=== PATIENT | female | born 1990 | race Caucasian/White ===

== ENCOUNTER 2019-12-08 06:50 | Inpatient (IN) | payer BC ==
[~2019-12-08 06:50] MED LIST: Bupivacaine 0.25% 10 ML SDV ONE
[2019-12-08] MEDS ORDERED: Sodium Chloride 0.9% 10 ML Syringe FLUSH PRN (07:28)
[2019-12-08] MEDS ORDERED: Oxytocin/Lactated Ringers 10 UNIT/1,000 ML BAG IV SCH ×2 (07:30)
[2019-12-08] MEDS ORDERED: ePHEDrine 50 MG/ML SDV IVPUSH PRN (07:49)
[2019-12-08] MEDS ORDERED: fentaNYL 100 MCG/2 ML SDV EPIDUR PRN (07:49)
[2019-12-08] MEDS ORDERED: diphenhydrAMINE 50 MG/ML SDV IVPUSH PRN (07:49)
[2019-12-08] MEDS ORDERED: Bupivacaine/fentaNYL/NS 100 ML Bag EPIDUR PRN (07:49)
[2019-12-08] MEDS ORDERED: Misoprostol 25 MCG (1/4 of 100 MCG) Tab ONE (08:01)
--- NOTE | 2019-12-08 08:11 | PCM.LDHP ---
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 An having cramping since seen in the clinic yesterday through the night. Cervix remains 1-2 cm 50% effaced soft posterior cephalic presentation -2 station GBS negative patient has had previous history of hydrocephalus in 2012 has a history of surgery with ventriculostomy. No contraindication to pushing R epidural. Patient has had a history of one miscarriage. Blood type A+, antibody screen negative. Hemoglobin/hematocrit 12.0/36.8 platelets 293,000. Rubella immune. Mixed ronnie suggestive of contamination on urine culture. Negative hepatitis B surface antigen negative. GC and chlamydia probe negative 09/16/2019 hemoglobin/hematocrit 11.4/34.1 platelets 228,000. Serology nonreactive. Group B strep negative on 11/16/2019. Plan medically indicated induction because of polyhydramnios, debris and amnionic fluid, uncoiled umbilical cord.. [place] fluid index 22.4 on ultrasound yesterday. Increased from 15.0 on 11/30/2019. Improves with: Reports: None Worsens with: Reports: None Associated Symptoms: Reports: N - Related Data Allergies/Adverse Reactions: Allergies Allergy/AdvReac Type Severity Reaction Status Date / Time No Known Allergies Allergy Verified 12/08/19 08:02 Past Medical History : 2 Para: 10 LMP (Approximate): Neurological History: Reports: Other (See Below) (History of hydrocephalus with ventriculostomy in 2012.) H&P Review of Systems - Review of Systems: Review Of Systems: See Below General: Reports: No Symptoms HEENT: Reports: No Symptoms Pulmonary: Reports: No Symptoms Cardiovascular: Reports: No Symptoms Gastrointestinal: Reports: No Symptoms Genitourinary: Reports: No Symptoms Musculoskeletal: Reports: No Symptoms Skin: Reports: No Symptoms Psychiatric: Reports: No Symptoms Neurological: Reports: No Symptoms Hematologic/Lymphatic: Reports: No Symptoms Immunologic: Reports: No Symptoms L&D Exam - Exam Exam: See Below - OB Specific Fundal Height In cm: 38 Contraction Intensity: Mild to Moderate Movement: Active Heart Tones: Present Heart Tones per Min: 135 Heart Rate (FHR) Variability: Moderate (6-25 bmp) Presentation: Vertex - Ramirez Score Ramirez Score Cervix Position: Posterior Ramirez Score Consistency: Soft Ramirez Score Effacement: 31-50% Ramirez Score Dilation: 1-2 cm Ramirez Score Infant's Station: -2 Ramirez Score Total: 5 - Exam General: Alert, Oriented HEENT: Conjunctiva Clear, Mucosa Moist & [place] Neck: Supple, Trachea Midline Lungs: Clear to Auscultation, Normal Respiratory Effort Cardiovascular: Regular Rate, Regular Rhythm GI/Abdominal Exam: Normal Bowel Sounds, Soft, Non-Tender Genitourinary: Normal external exam Extremities: Normal Inspection, Non-Tender, No Pedal Edema, Normal Capillary Refill Skin: Warm, Dry, Intact Psychiatric: Alert, Normal Affect, Normal Mood - Problem List (1) 38 weeks gestation of SNOMED Code(s): 31984132 ICD Code: Z3A.38 - 38 WEEKS GESTATION OF Status: Acute Current Visit: Yes (2) Polyhydramnios affecting in third trimester SNOMED Code(s): 516857071, 458345898 ICD Code: O40.3XX0 - POLYHYDRAMNIOS, THIRD TRIMESTER, NOT APPLICABLE OR UNSP Status: Acute Current Visit: Yes (3) Abnormal US Status: Acute Current Visit: Yes Problem List Initiated/Reviewed/Updated: No Orders Last 24hrs: Active Orders 24 hr Category Date Time Status Patient Status [ADT] Routine ADT 12/08/19 07:28 Active Activity as Tolerated [RC] PFP Care 12/08/19 07:28 Active Communication Order [RC] ASDIRECTED Care 12/08/19 07:28 Active Communication Order [RC] ASDIRECTED Care 12/08/19 07:30 Active Communication Order [RC] ASDIRECTED Care 12/08/19 07:30 Active Communication Order [RC] ASDIRECTED Care 12/08/19 07:30 Active Communication Order [RC] ASDIRECTED Care 12/08/19 07:49 Active Cooling Warming Measures [RC] ASDIRECTED Care 12/08/19 07:49 Active Heart Tones [RC] ASDIRECTED Care 12/08/19 07:28 Active Monitoring [RC] INTERMITTENT Care 12/08/19 07:30 Active Non Stress Test [RC] PER UNIT ROUTINE Care 12/08/19 07:28 Active Notify Provider [RC] ASDIRECTED Care 12/08/19 07:30 Active Notify Provider [RC] ASDIRECTED Care 12/08/19 07:49 Active Notify Provider [RC] PFP Care 12/08/19 07:28 Active Notify Provider [RC] PRN Care 12/08/19 07:28 Active Oxygen Therapy [RC] ASDIRECTED Care 12/08/19 07:49 Active Peripheral IV Care [RC] . DIRECTED Care 12/08/19 07:28 Active Pulse Oximetry [RC] ASDIRECTED Care 12/08/19 07:49 Active Vaginal Exam [RC] ASDIRECTED Care 12/08/19 07:30 Active Vital Signs [RC] PER UNIT ROUTINE Care 12/08/19 07:28 Active Vital Signs [RC] Q1H Care 12/08/19 07:49 Active Regular Diet [DIET] Diet 12/08/19 Dinner Active CBC WITH AUTO DIFF [HEME] Stat Lab 12/08/19 07:51 Received RAPID PLASMA REAGIN,RPR [CHEM] Routine Lab 12/08/19 07:51 Received TYPE AND SCREEN [BBK] Stat Lab 12/08/19 07:51 Received Bupivicaine/fentaNYL/NS [fentaNYL/Bupivacaine/NS 2 MCG- Med 12/08/19 07:49 Ordered 0.125% 250 ML] DOSE ml EPIDUR CONTINUOUS PRN Lactated Ringers [Ringers, Lactated] 1,000 ml Med 12/08/19 07:30 Pending IV ASDIRECTED Oxytocin/Lactated Ringers [Pitocin in LR 10 Units/1,000 Med 12/08/19 07:30 Ordered ML] 10 unit in 1,000 ml IV .CONTINUOUS Oxytocin/Lactated Ringers [Pitocin in LR 10 Units/1,000 Med 12/08/19 07:30 Ordered ML] 10 unit in 1,000 ml IV TITRATE Sodium Chloride 0.9% [Saline Flush] Med 12/08/19 07:28 Ordered 10 ml FLUSH ASDIRECTED PRN diphenhydrAMINE [Benadryl] Med 12/08/19 07:49 Ordered 25 mg IVPUSH Q6H PRN ePHEDrine [ePHEDrine sulfate] Med 12/08/19 07:49 Ordered 5 mg IVPUSH ASDIRECTED PRN fentaNYL [Sublimaze] Med 12/08/19 07:49 Ordered 100 mcg EPIDUR Q3H PRN miSOPROStoL [Cytotec] Med 12/08/19 08:30 Once 25 mcg VAG ONETIME ONE miSOPROStoL [Cytotec] Med 12/08/19 09:00 Ordered 50 mcg VAG Q4HR Electronic Heart Tones Ext w TOCO [WOMSER] Oth 12/08/19 07:28 Ordered Routine Electronic Heart Tones Internal [WOMSER] Per Unit Oth 12/08/19 07:28 Ordered Routine Peripheral IV Insertion Adult [OM.PC] Routine Oth 12/08/19 07:28 Ordered Resuscitation Status Routine Resus Stat 12/08/19 07:28 Ordered Medication Orders Diphenhydramine HCl (Benadryl) 25 mg IVPUSH Q6H PRN PRN Reason: Itching Ephedrine Sulfate (Ephedrine Sulfate) 5 mg IVPUSH ASDIRECTED PRN PRN Reason: HYPOTENTSION Fentanyl (Sublimaze) 100 mcg EPIDUR Q3H PRN PRN Reason: Pain Fentanyl/Bupivacaine HCl (Fentanyl/Bupivacaine/Ns 2 Mcg-0.125% 250 Ml) ml EPIDUR CONTINUOUS PRN PRN Reason: Pain Lactated Ringer's (Ringers, Lactated) 1,000 mls @ 100 mls/hr IV ASDIRECTED CASSY Oxytocin/Lactated Ringer's (Pitocin In Lr 10 Units/1,000 Ml) 10 unit in 1,000 mls @ 12 mls/hr IV TITRATE CASSY; Protocol Oxytocin/Lactated Ringer's (Pitocin In Lr 10 Units/1,000 Ml) 10 unit in 1,000 mls @ 100 mls/hr IV .CONTINUOUS CASSY Misoprostol (Cytotec) 25 mcg VAG ONETIME ONE Stop: 12/08/19 08:31 Misoprostol (Cytotec) 50 mcg VAG Q4HR CASSY Stop: 12/08/19 17:01 Sodium Chloride (Saline Flush) 10 ml FLUSH ASDIRECTED PRN PRN Reason: Keep Vein Open Assessment/Plan Comment:: Clinically indicated induction because of polyhydramnios, uncoiled umbilical cord, debris and amnionic fluid. Cytotec 50 g placed intravaginally adjacent to the cervix at 0802 hrs.
[2019-12-08] MEDS ORDERED: Misoprostol 25 MCG (1/4 of 100 MCG) Tab VAG ONE (08:30)
[2019-12-08] MEDS ORDERED: Misoprostol 25 MCG (1/4 of 100 MCG) Tab VAG SCH (09:00)
[2019-12-08] MEDS: Lactated Ringers 1,000 ML IV SCH ×4 (11:30→16:03)
--- NOTE | 2019-12-08 12:30 | PCM.SN ---
- Free Text/Narrative Note: Cervix at 1225 12/08/2019 2 cm, 70%, soft, mid-position, vertex -1, amniotomy clear fluid at 1225. Cat I FHR. May need epidural soon.
--- NOTE | 2019-12-08 14:07 | PCM.PREANE ---
Preanesthetic Assessment - Procedure Proposed Procedure: epidural - Anesthesia/Transfusion/Family Hx Anesthesia History: Prior Anesthesia Without Reaction Family History of Anesthesia Reaction: No Transfusion History: No Prior Transfusion(s) - Review of Systems General: Fatigue Pulmonary: No Symptoms Cardiovascular: No Symptoms Gastrointestinal: Abdominal Pain (labor) Neurological: No Symptoms Other: Reports: None - Physical Assessment Vital Signs: Last Vital Signs Temp 36.7 C 12/08/19 07:13 Pulse 80 12/08/19 07:13 Resp 16 12/08/19 07:13 BP 117/74 12/08/19 07:13 Pulse Ox 100 12/08/19 07:13 Height: 1.63 m Weight: 82.1 kg ASA Class: 2 Mental Status: Alert & Oriented x3 Airway Class: Mallampati = 1 Dentition: Reports: Normal Dentition Thyro-Mental Finger Breadths: 3 Mouth Opening Finger Breadths: 3 ROM/Head Extension: Full Lungs: Clear to Auscultation, Normal Respiratory Effort Cardiovascular: Regular Rate, Regular Rhythm - Lab Values: Laboratory Last Values WBC 8.58 K/mm3 (3.98-10.04) 12/08/19 07:51 RBC 3.91 M/mm3 (3.98-5.22) L 12/08/19 07:51 Hgb 12.2 gm/dl (11.2-15.7) 12/08/19 07:51 Hct 36.2 % (34.1-44.9) 12/08/19 07:51 MCV 92.6 fl (79.4-94.8) 12/08/19 07:51 MCH 31.2 pg (25.6-32.2) 12/08/19 07:51 MCHC 33.7 g/dl (32.2-35.5) 12/08/19 07:51 RDW Std Deviation 41.9 fL (36.4-46.3) 12/08/19 07:51 Plt Count 213 K/mm3 (182-369) 12/08/19 07:51 MPV 9.4 fl (9.4-12.3) 12/08/19 07:51 Neut % (Auto) 73.9 % (34.0-71.1) H 12/08/19 07:51 Lymph % (Auto) 17.2 % (19.3-51.7) L 12/08/19 07:51 [place] % (Auto) 6.3 % (4.7-12.5) 12/08/19 07:51 Eos % (Auto) 1.6 (0.7-5.8) 12/08/19 07:51 Baso % (Auto) 0.3 % (0.1-1.2) 12/08/19 07:51 Neut # (Auto) 6.33 K/mm3 (1.56-6.13) H 12/08/19 07:51 Lymph # (Auto) 1.48 K/mm3 (1.18-3.74) 12/08/19 07:51 [place] # (Auto) 0.54 K/mm3 (0.24-0.36) H 12/08/19 07:51 Eos # (Auto) 0.14 K/mm3 (0.04-0.36) 12/08/19 07:51 Baso # (Auto) 0.03 K/mm3 (0.01-0.08) 12/08/19 07:51 Blood Type A POSITIVE 12/08/19 07:51 Gel Antibody Screen Negative 12/08/19 07:51 - Allergies Allergies/Adverse Reactions: Allergies Allergy/AdvReac Type Severity Reaction Status Date / Time No Known Allergies Allergy Verified 12/08/19 08:02 - Anesthesia Plan Pre-Op Medication Ordered: None - Acknowledgements Anesthesia Type Planned: Epidural Pt an Appropriate Candidate for the Planned Anesthesia: Yes Alternatives and Risks of Anesthesia Discussed w Pt/Guardian: Yes Pt/Guardian Understands and Agrees with Anesthesia Plan: Yes PreAnesthesia Questionnaire HEENT History: Reports: Impaired Vision Other HEENT History: wears glasses Gastrointestinal History: Reports: GERD [employer] History: Reports: , Spontaneous Neurological History: Reports: Other (See Below) (History of hydrocephalus with ventriculostomy in 2013.) - SUBSTANCE USE Smoking Status *Q: Never Smoker Second Hand Smoke Exposure: No Recreational Drug Use History: No - CURRENT (IN HOUSE) MEDS Current Meds: Current Medications Diphenhydramine HCl (Benadryl) 25 mg IVPUSH Q6H PRN PRN Reason: Itching Ephedrine Sulfate (Ephedrine Sulfate) 5 mg IVPUSH ASDIRECTED PRN PRN Reason: HYPOTENTSION Fentanyl (Sublimaze) 100 mcg EPIDUR Q3H PRN PRN Reason: Pain Last Admin: 12/08/19 13:45 Dose: 100 mcg Fentanyl/Bupivacaine HCl (Fentanyl/Bupivacaine/Ns 2 Mcg-0.125% 100 Ml) 100 ml EPIDUR CONTINUOUS PRN PRN Reason: Pain Last Admin: 12/08/19 13:45 Dose: 100 ml Lactated Ringer's (Ringers, Lactated) 1,000 mls @ 100 mls/hr IV ASDIRECTED CASSY Last Admin: 12/08/19 13:09 Dose: 100 mls/hr Oxytocin/Lactated Ringer's (Pitocin In Lr 10 Units/1,000 Ml) 10 unit in 1,000 mls @ 12 mls/hr IV TITRATE CASSY; Protocol Oxytocin/Lactated Ringer's (Pitocin In Lr 10 Units/1,000 Ml) 10 unit in 1,000 mls @ 100 mls/hr IV .CONTINUOUS CASSY Misoprostol (Cytotec) 50 mcg VAG Q4H CASSY Stop: 12/08/19 17:01 Last Admin: 12/08/19 11:10 Dose: 50 mcg Sodium Chloride (Saline Flush) 10 ml FLUSH ASDIRECTED PRN PRN Reason: Keep Vein Open Discontinued Medications Misoprostol (Cytotec) 25 mcg VAG ONETIME ONE Stop: 12/08/19 08:31 Last Admin: 12/08/19 08:22 Dose: Not Given Misoprostol (Cytotec) Confirm Administered Dose 50 mcg .ROUTE .STK-MED ONE Stop: 12/08/19 08:02 Last Admin: 12/08/19 08:04 Dose: 50 mcg
--- NOTE | 2019-12-08 16:00 | PCM.SN ---
- Free Text/Narrative Note: Cervix 5 cm, 90% effaced, soft, anterior, vertex 0 station. Epidural good pain relief. Patient had three variable decelerations just after exam. Position change seemed to help. Todd in place and draining. FHR better after repositioning.
--- NOTE | 2019-12-08 18:28 | PCM.DEL ---
L & D Note - General Info Date of Service: 12/08/19 Mother's Due Date: 12/16/19 - Delivery Note Labor: Augmented by ARM Cervical Ripening Method: Misoprostil (50 mcg x2) Delivery Outcome: Livebirth (male live born 180012/08/2018 polyhydramnios , weight 3170 b/6#15.8 oz APGARS 9/9 SPENCER) Infant Delivery Method: Spontaneous Vaginal Delivery-Single Delivery Mode: Spontaneous Presentation: Left Occiput Anterior (SPENCER) Nuchal Cord: None Prep: Povidone-Iodine (Betadine Anesthesia Type: Epidural Amniotic Fluid Description: Clear Episiotomy Type: None Laceration: 2nd Degree (midline ) Suture type: Other (monocryl) Suture size: 3-0 Placenta: Intact, Spontaneous (180212/08/2019) Cord: 3 Vessels Estimated Blood Loss: 250 Resuscitation Needed: No : Suctioned, Bulb Syringe, Stimulated, Warmed, [place] Used, Warmer Used Provider: Shaun Cavanaugh Score 1 min: 9 Score 5 min: 9 Induction Criteria - Ramirez Score Ramirez Score Dilation: 1-2 cm Ramirez Score Effacement: 40-50% Ramirez Score Infant's Station: -2 Ramirez Score Consistency: Soft Ramirez Score Cervix Position: Posterior Ramirez Score Total: 5 Ramirez Score Presenting Part: Reports: Cephalic - Induction Gestational Age >/= 39 wks: No Medical Indication: polyhydramnios Estimated Pelvis: Reports: Adequate Reassuring Monitoring Strip: Yes Absence of Tachy Systole: Yes - Augmentation Estimated Pelvis: Reports: Adequate Weight Estimated:: Reports: AGA Reassuring Monitoring Strip: Yes Absence of Tachy Systole: Yes - General Info Date of Service: 12/08/19 Functional Status: Reports: Pain Controlled - Review of Systems General: Reports: No Symptoms HEENT: Reports: No Symptoms Pulmonary: Reports: No Symptoms Cardiovascular: Reports: No Symptoms Gastrointestinal: Reports: No Symptoms Genitourinary: Reports: No Symptoms Musculoskeletal: Reports: No Symptoms Skin: Reports: No Symptoms Neurological: Reports: No Symptoms Psychiatric: Reports: No Symptoms - Patient Data Vitals - Most Recent: Last Vital Signs Temp 98.1 F 12/08/19 07:13 Pulse 80 12/08/19 07:13 Resp 16 12/08/19 07:13 BP 117/74 12/08/19 07:13 Pulse Ox 100 12/08/19 07:13 Weight - Most Recent: 181 lb I&O - Last 24 Hours: Intake & Output 12/08/19 12/08/19 12/08/19 06:59 14:59 22:59 Intake Total 240 Balance 240 Lab Results Last 24 Hours: Laboratory Results - last 24 hr 12/08/19 12/08/19 Range/Units 07:51 07:51 WBC 8.58 (3.98-10.04) K/mm3 RBC 3.91 L (3.98-5.22) M/mm3 Hgb 12.2 (11.2-15.7) gm/dl Hct 36.2 (34.1-44.9) % MCV 92.6 (79.4-94.8) fl MCH 31.2 (25.6-32.2) pg MCHC 33.7 (32.2-35.5) g/dl RDW Std Deviation 41.9 (36.4-46.3) fL Plt Count 213 (182-369) K/mm3 MPV 9.4 (9.4-12.3) fl Neut % (Auto) 73.9 H (34.0-71.1) % Lymph % (Auto) 17.2 L (19.3-51.7) % [place] % (Auto) 6.3 (4.7-12.5) % Eos % (Auto) 1.6 (0.7-5.8) Baso % (Auto) 0.3 (0.1-1.2) % Neut # (Auto) 6.33 H (1.56-6.13) K/mm3 Lymph # (Auto) 1.48 (1.18-3.74) K/mm3 [place] # (Auto) 0.54 H (0.24-0.36) K/mm3 Eos # (Auto) 0.14 (0.04-0.36) K/mm3 Baso # (Auto) 0.03 (0.01-0.08) K/mm3 Blood Type A POSITIVE Gel Antibody Screen Negative Med Orders - Current: Current Medications Diphenhydramine HCl (Benadryl) 25 mg IVPUSH Q6H PRN PRN Reason: Itching Ephedrine Sulfate (Ephedrine Sulfate) 5 mg IVPUSH ASDIRECTED PRN PRN Reason: HYPOTENTSION Fentanyl (Sublimaze) 100 mcg EPIDUR Q3H PRN PRN Reason: Pain Last Admin: 12/08/19 13:45 Dose: 100 mcg Fentanyl/Bupivacaine HCl (Fentanyl/Bupivacaine/Ns 2 Mcg-0.125% 100 Ml) 100 ml EPIDUR CONTINUOUS PRN PRN Reason: Pain Last Admin: 12/08/19 13:45 Dose: 100 ml Lactated Ringer's (Ringers, Lactated) 1,000 mls @ 100 mls/hr IV ASDIRECTED CASSY Last Admin: 12/08/19 16:03 Dose: 100 mls/hr Oxytocin/Lactated Ringer's (Pitocin In Lr 10 Units/1,000 Ml) 10 unit in 1,000 mls @ 12 mls/hr IV TITRATE CASSY; Protocol Oxytocin/Lactated Ringer's (Pitocin In Lr 10 Units/1,000 Ml) 10 unit in 1,000 mls @ 100 mls/hr IV .CONTINUOUS CASSY Sodium Chloride (Saline Flush) 10 ml FLUSH ASDIRECTED PRN PRN Reason: Keep Vein Open Discontinued Medications Misoprostol (Cytotec) 25 mcg VAG ONETIME ONE Stop: 12/08/19 08:31 Last Admin: 12/08/19 08:22 Dose: Not Given Misoprostol (Cytotec) 50 mcg VAG Q4H [facility] Stop: 12/08/19 17:01 Last Admin: 12/08/19 11:10 Dose: 50 mcg Misoprostol (Cytotec) Confirm Administered Dose 50 mcg .ROUTE .STK-MED ONE Stop: 12/08/19 08:02 Last Admin: 12/08/19 08:04 Dose: 50 mcg - Exam General: Alert, Oriented HEENT: Pupils Equal, Mucous Membr. Moist/[place] Neck: Supple Lungs: Clear to Auscultation, Normal Respiratory Effort Cardiovascular: Regular Rate, Regular Rhythm GI/Abdominal Exam: Normal Bowel Sounds, Soft, Non-Tender (Female) Exam: Normal External Exam Extremities: Normal Inspection, Non-Tender, No Pedal Edema, Normal Capillary Refill Skin: Warm, Dry, Intact Psy/Mental Status: Alert, Normal Affect, Normal Mood - Problem List & Annotations (1) 38 weeks gestation of SNOMED Code(s): 58923113 Code(s): Z3A.38 - 38 WEEKS GESTATION OF Status: Acute Current Visit: Yes (2) Polyhydramnios affecting in third trimester SNOMED Code(s): 277438441, 707211687 Code(s): O40.3XX0 - POLYHYDRAMNIOS, THIRD TRIMESTER, NOT APPLICABLE OR UNSP Status: Acute Current Visit: Yes (3) Abnormal US Status: Acute Current Visit: Yes (4) Second degree perineal laceration, delivered, current hospitalization SNOMED Code(s): 141481024, 500549908 Code(s): O70.1 - SECOND DEGREE PERINEAL LACERATION DURING DELIVERY Status: Acute Current Visit: Yes - Problem List Review Problem List Initiated/Reviewed/Updated: No - My Orders Last 24 Hours: My Active Orders 12/08/19 07:28 Patient Status [ADT] Routine Activity as Tolerated [RC] PFP Communication Order [RC] ASDIRECTED Heart Tones [RC] ASDIRECTED Non Stress Test [RC] PER UNIT ROUTINE Notify Provider [RC] PFP Notify Provider [RC] PRN Peripheral IV Care [RC] . DIRECTED Vital Signs [RC] PER UNIT ROUTINE Sodium Chloride 0.9% [Saline Flush] 10 ml FLUSH ASDIRECTED PRN Electronic Heart Tones Ext w TOCO [WOMSER] Routine Electronic Heart Tones Internal [WOMSER] Per Unit Routine Peripheral IV Insertion Adult [OM.PC] Routine Resuscitation Status Routine 12/08/19 07:30 Communication Order [RC] ASDIRECTED Communication Order [RC] ASDIRECTED Communication Order [RC] ASDIRECTED Monitoring [RC] INTERMITTENT Notify Provider [RC] ASDIRECTED Vaginal Exam [RC] ASDIRECTED Lactated Ringers [Ringers, Lactated] 1,000 ml IV ASDIRECTED Oxytocin/Lactated Ringers [Pitocin in LR 10 Units/1,000 ML] 10 unit in 1,000 ml IV .CONTINUOUS Oxytocin/Lactated Ringers [Pitocin in LR 10 Units/1,000 ML] 10 unit in 1,000 ml IV TITRATE 12/08/19 07:51 RAPID PLASMA REAGIN,RPR [CHEM] Routine 12/08/19 Dinner Regular Diet [DIET] - Plan Plan:: Clinically indicated induction because of polyhydramnios, uncoiled umbilical cord, debris and amnionic fluid. Cytotec 50 g placed intravaginally adjacent to the cervix at 0802 hrs.
[2019-12-08] MEDS ORDERED: Witch Hazel Medicated Pads 40/Jar TOP PRN (18:34)
[2019-12-08] MEDS ORDERED: Docusate Sodium 100 MG Cap PO PRN (18:34)
[2019-12-08] MEDS ORDERED: Acetaminophen 325 MG Tab PO PRN (18:34)
[2019-12-08] MEDS ORDERED: Benzocaine/Menthol 20%-0.5% Spray 56 GM Canister TOP PRN (18:34)
[2019-12-08] MEDS: Ibuprofen 600 MG Tab PO PRN (20:52)
[2019-12-09] MEDS: Ibuprofen 600 MG Tab PO PRN ×3 (05:38→19:04)
--- NOTE | 2019-12-09 07:45 | PCM48HPAN ---
Post Anesthesia Note - EVALUATION WITHIN 48HRS OF ANESTHETIC Vital Signs in Normal Range: Yes Patient Participated in Evaluation: Yes Respiratory Function Stable: Yes Airway Patent: Yes Cardiovascular Function Stable: Yes Hydration Status Stable: Yes Pain Control Satisfactory: Yes Nausea and Vomiting Control Satisfactory: Yes Mental Status Recovered: Yes Vital Signs: Last Vital Signs Temp 98.2 F 12/09/19 05:18 Pulse 73 12/09/19 05:18 Resp 16 12/09/19 05:18 BP 92/62 12/09/19 05:18 Pulse Ox 98 12/09/19 05:18 - COMMENTS/OBSERVATIONS Free Text/Narrative:: Patient is on her day 1. Stated understanding about possible backaches following epidural anesthesia. Denies any back soreness at this time. Explanation given about importance of avoiding back straining. Denies any headache or lightheadedness at this time. Comfortable now. Ambulating, no difficulty urinating.
--- NOTE | 2019-12-09 08:35 | PCM.SN ---
- Free Text/Narrative Note: day 1 Afebrile, no heavy vaginal bleeding, uterus involuting normally. No leg cramping. No complaints. Probably home tomorrow. Doing well.
--- NOTE | 2019-12-10 08:28 | PCM.DCSUM1 ---
Discharge Summary - Hospital Course Free Text/Narrative:: [facility] LIVE L/D Delivery Note Patient Name: NORRIS BA Date of : 89 Patient Status: Inpatient Attending Provider: Shaun Cavanaugh Date: 12/08/19 18:21 Initialization Date: 12/08/19 18:21 L & D Note - General Info Date of Service: 12/08/19 Mother's Due Date: 12/16/19 - Delivery Note Labor: Augmented by ARM Cervical Ripening Method: Misoprostil (50 mcg x2) Delivery Outcome: Livebirth (male live born 180012/08/2018 polyhydramnios , weight 3170 b/6#15.8 oz APGARS 9/9 SPENCER) Delivery Method: Spontaneous Vaginal Delivery-Single Infant Delivery Mode: Spontaneous Presentation: Left Occiput Anterior (SPENCER) Nuchal Cord: None Prep: Povidone-Iodine (Betadine Anesthesia Type: Epidural Amniotic Fluid Description: Clear Episiotomy Type: None Laceration: 2nd Degree (midline ) Suture type: Other (monocryl) Suture size: 3-0 Placenta: Intact, Spontaneous (180212/08/2019) Cord: 3 Vessels Estimated Blood Loss: 250 Resuscitation Needed: No [place]: Suctioned, Bulb Syringe, Stimulated, Warmed, [place] Used, Warmer Used Provider: Shaun Cavanaugh Score 1 min: 9 Score 5 min: 9 Induction Criteria - Ramirez Score Ramirez Score Dilation: 1-2 cm Ramirez Score Effacement: 40-50% Ramirez Score 's Station: -2 Ramirez Score Consistency: Soft Ramirez Score Cervix Position: Posterior Ramirez Score Total: 5 Ramirez Score Presenting Part: Reports: Cephalic - Induction Gestational Age >/= 39 wks: No Medical Indication: polyhydramnios Estimated Pelvis: Reports: Adequate Reassuring Monitoring Strip: Yes Absence of Tachy Systole: Yes - Augmentation Estimated Pelvis: Reports: Adequate Weight Estimated:: Reports: AGA Reassuring Monitoring Strip: Yes Absence of Tachy Systole: Yes - General Info Date of Service: 12/08/19 Functional Status: Reports: Pain Controlled - Review of Systems General: Reports: No Symptoms HEENT: Reports: No Symptoms Pulmonary: Reports: No Symptoms Cardiovascular: Reports: No Symptoms Gastrointestinal: Reports: No Symptoms Genitourinary: Reports: No Symptoms Musculoskeletal: Reports: No Symptoms Skin: Reports: No Symptoms Neurological: Reports: No Symptoms Psychiatric: Reports: No Symptoms - Patient Data Vitals - Most Recent: Last Vital Signs Temp 98.1 F 12/08/19 07:13 Pulse 80 12/08/19 07:13 Resp 16 12/08/19 07:13 BP 117/74 12/08/19 07:13 Pulse Ox 100 12/08/19 07:13 Weight - Most Recent: 181 lb I&O - Last 24 Hours: Intake & Output 12/08/19 12/08/19 12/08/19 06:59 14:59 22:59 Intake Total 240 Balance 240 Lab Results Last 24 Hours: Laboratory Results - last 24 hr 12/08/19 12/08/19 Range/Units 07:51 07:51 WBC 8.58 (3.98-10.04) K/mm3 RBC 3.91 L (3.98-5.22) M/mm3 Hgb 12.2 (11.2-15.7) gm/dl Hct 36.2 (34.1-44.9) % MCV 92.6 (79.4-94.8) fl MCH 31.2 (25.6-32.2) pg MCHC 33.7 (32.2-35.5) g/dl RDW Std Deviation 41.9 (36.4-46.3) fL Plt Count 213 (182-369) K/mm3 MPV 9.4 (9.4-12.3) fl Neut % (Auto) 73.9 H (34.0-71.1) % Lymph % (Auto) 17.2 L (19.3-51.7) % [place] % (Auto) 6.3 (4.7-12.5) % Eos % (Auto) 1.6 (0.7-5.8) Baso % (Auto) 0.3 (0.1-1.2) % Neut # (Auto) 6.33 H (1.56-6.13) K/mm3 Lymph # (Auto) 1.48 (1.18-3.74) K/mm3 [place] # (Auto) 0.54 H (0.24-0.36) K/mm3 Eos # (Auto) 0.14 (0.04-0.36) K/mm3 Baso # (Auto) 0.03 (0.01-0.08) K/mm3 Blood Type A POSITIVE Gel Antibody Screen Negative Med Orders - Current: Current Medications Diphenhydramine HCl (Benadryl) 25 mg IVPUSH Q6H PRN PRN Reason: Itching Ephedrine Sulfate (Ephedrine Sulfate) 5 mg IVPUSH ASDIRECTED PRN PRN Reason: HYPOTENTSION Fentanyl (Sublimaze) 100 mcg EPIDUR Q3H PRN PRN Reason: Pain Last Admin: 12/08/19 13:45 Dose: 100 mcg Fentanyl/Bupivacaine HCl (Fentanyl/Bupivacaine/Ns 2 Mcg-0.125% 100 Ml) 100 ml EPIDUR CONTINUOUS PRN PRN Reason: Pain Last Admin: 12/08/19 13:45 Dose: 100 ml Lactated Ringer's (Ringers, Lactated) 1,000 mls @ 100 mls/hr IV ASDIRECTED CASSY Last Admin: 12/08/19 16:03 Dose: 100 mls/hr Oxytocin/Lactated Ringer's (Pitocin In Lr 10 Units/1,000 Ml) 10 unit in 1,000 mls @ 12 mls/hr IV TITRATE CASSY; Protocol Oxytocin/Lactated Ringer's (Pitocin In Lr 10 Units/1,000 Ml) 10 unit in 1,000 mls @ 100 mls/hr IV .CONTINUOUS CASSY Sodium Chloride (Saline Flush) 10 ml FLUSH ASDIRECTED PRN PRN Reason: Keep Vein Open Discontinued Medications Misoprostol (Cytotec) 25 mcg VAG ONETIME ONE Stop: 12/08/19 08:31 Last Admin: 12/08/19 08:22 Dose: Not Given Misoprostol (Cytotec) 50 mcg VAG Q4H CASSY Stop: 12/08/19 17:01 Last Admin: 12/08/19 11:10 Dose: 50 mcg Misoprostol (Cytotec) Confirm Administered Dose 50 mcg .ROUTE .STK-MED ONE Stop: 12/08/19 08:02 Last Admin: 12/08/19 08:04 Dose: 50 mcg - Exam General: Alert, Oriented HEENT: Pupils Equal, Mucous Membr. Moist/[place] Neck: Supple Lungs: Clear to Auscultation, Normal Respiratory Effort Cardiovascular: Regular Rate, Regular Rhythm GI/Abdominal Exam: Normal Bowel Sounds, Soft, Non-Tender (Female) Exam: Normal External Exam Extremities: Normal Inspection, Non-Tender, No Pedal Edema, Normal Capillary Refill Skin: Warm, Dry, Intact Psy/Mental Status: Alert, Normal Affect, Normal Mood - Problem List & Annotations (1) 38 weeks gestation of SNOMED Code(s): 71110419 Code(s): Z3A.38 - 38 WEEKS GESTATION OF Status: Acute Current Visit: Yes (2) Polyhydramnios affecting in third trimester SNOMED Code(s): 948193708, 120362807 Code(s): O40.3XX0 - POLYHYDRAMNIOS, THIRD TRIMESTER, NOT APPLICABLE OR UNSP Status: Acute Current Visit: Yes (3) Abnormal US Status: Acute Current Visit: Yes (4) Second degree perineal laceration, delivered, current hospitalization SNOMED Code(s): 116059466, 703379048 Code(s): O70.1 - SECOND DEGREE PERINEAL LACERATION DURING DELIVERY Status: Acute Current Visit: Yes - Problem List Review Problem List Initiated/Reviewed/Updated: No - My Orders Last 24 Hours: My Active Orders 12/08/19 07:28 Patient Status [ADT] Routine Activity as Tolerated [RC] PFP Communication Order [RC] ASDIRECTED Heart Tones [RC] ASDIRECTED Non Stress Test [RC] PER UNIT ROUTINE Notify Provider [RC] PFP Notify Provider [RC] PRN Peripheral IV Care [RC] . DIRECTED Vital Signs [RC] PER UNIT ROUTINE Sodium Chloride 0.9% [Saline Flush] 10 ml FLUSH ASDIRECTED PRN Electronic Heart Tones Ext w TOCO [WOMSER] Routine Electronic Heart Tones Internal [WOMSER] Per Unit Routine Peripheral IV Insertion Adult [OM.PC] Routine Resuscitation Status Routine 12/08/19 07:30 Communication Order [RC] ASDIRECTED Communication Order [RC] ASDIRECTED Communication Order [RC] ASDIRECTED Monitoring [RC] INTERMITTENT Notify Provider [RC] ASDIRECTED Vaginal Exam [RC] ASDIRECTED Lactated Ringers [Ringers, Lactated] 1,000 ml IV ASDIRECTED Oxytocin/Lactated Ringers [Pitocin in LR 10 Units/1,000 ML] 10 unit in 1,000 ml IV .CONTINUOUS Oxytocin/Lactated Ringers [Pitocin in LR 10 Units/1,000 ML] 10 unit in 1,000 ml IV TITRATE 12/08/19 07:51 RAPID PLASMA REAGIN,RPR [CHEM] Routine 12/08/19 Dinner Regular Diet [DIET] - Plan Plan:: Clinically indicated induction because of polyhydramnios, uncoiled umbilical cord, debris and amnionic fluid. Cytotec 50 g placed intravaginally adjacent to the cervix at 0802 hrs. HPI Initial Comments: [facility] LIVE L/D Delivery Note Patient Name: NORRIS BA Date of : 89 Patient Status: Inpatient Attending Provider: Shaun Cavanaugh Date: 12/08/19 18:21 Initialization Date: 12/08/19 18:21 L & D Note - General Info Date of Service: 12/08/19 Mother's Due Date: 12/16/19 - Delivery Note Labor: Augmented by ARM Cervical Ripening Method: Misoprostil (50 mcg x2) Delivery Outcome: Livebirth (male live born 180012/08/2018 polyhydramnios , weight 3170 b/6#15.8 oz APGARS 9/9 SPENCER) Infant Delivery Method: Spontaneous Vaginal Delivery-Single Delivery Mode: Spontaneous Presentation: Left Occiput Anterior (SPENCER) Nuchal Cord: None Prep: Povidone-Iodine (Betadine Anesthesia Type: Epidural Amniotic Fluid Description: Clear Episiotomy Type: None Laceration: 2nd Degree (midline ) Suture type: Other (monocryl) Suture size: 3-0 Placenta: Intact, Spontaneous (180212/08/2019) Cord: 3 Vessels Estimated Blood Loss: 250 Resuscitation Needed: No : Suctioned, Bulb Syringe, Stimulated, Warmed, [place] Used, Warmer Used Provider: Shaun Cavanaugh Score 1 min: 9 Score 5 min: 9 Induction Criteria - Ramirez Score Ramirez Score Dilation: 1-2 cm Ramirez Score Effacement: 40-50% Ramirez Score Infant's Station: -2 Ramirez Score Consistency: Soft Ramirez Score Cervix Position: Posterior Ramirez Score Total: 5 Ramirez Score Presenting Part: Reports: Cephalic - Induction Gestational Age >/= 39 wks: No Medical Indication: polyhydramnios Estimated Pelvis: Reports: Adequate Reassuring Monitoring Strip: Yes Absence of Tachy Systole: Yes - Augmentation Estimated Pelvis: Reports: Adequate Weight Estimated:: Reports: AGA Reassuring Monitoring Strip: Yes Absence of Tachy Systole: Yes - General Info Date of Service: 12/08/19 Functional Status: Reports: Pain Controlled - Review of Systems General: Reports: No Symptoms HEENT: Reports: No Symptoms Pulmonary: Reports: No Symptoms Cardiovascular: Reports: No Symptoms Gastrointestinal: Reports: No Symptoms Genitourinary: Reports: No Symptoms Musculoskeletal: Reports: No Symptoms Skin: Reports: No Symptoms Neurological: Reports: No Symptoms Psychiatric: Reports: No Symptoms - Patient Data Vitals - Most Recent: Last Vital Signs Temp 98.1 F 12/08/19 07:13 Pulse 80 12/08/19 07:13 Resp 16 12/08/19 07:13 BP 117/74 12/08/19 07:13 Pulse Ox 100 12/08/19 07:13 Weight - Most Recent: 181 lb I&O - Last 24 Hours: Intake & Output 12/08/19 12/08/19 12/08/19 06:59 14:59 22:59 Intake Total 240 Balance 240 Lab Results Last 24 Hours: Laboratory Results - last 24 hr 12/08/19 12/08/19 Range/Units 07:51 07:51 WBC 8.58 (3.98-10.04) K/mm3 RBC 3.91 L (3.98-5.22) M/mm3 Hgb 12.2 (11.2-15.7) gm/dl Hct 36.2 (34.1-44.9) % MCV 92.6 (79.4-94.8) fl MCH 31.2 (25.6-32.2) pg MCHC 33.7 (32.2-35.5) g/dl RDW Std Deviation 41.9 (36.4-46.3) fL Plt Count 213 (182-369) K/mm3 MPV 9.4 (9.4-12.3) fl Neut % (Auto) 73.9 H (34.0-71.1) % Lymph % (Auto) 17.2 L (19.3-51.7) % [place] % (Auto) 6.3 (4.7-12.5) % Eos % (Auto) 1.6 (0.7-5.8) Baso % (Auto) 0.3 (0.1-1.2) % Neut # (Auto) 6.33 H (1.56-6.13) K/mm3 Lymph # (Auto) 1.48 (1.18-3.74) K/mm3 [place] # (Auto) 0.54 H (0.24-0.36) K/mm3 Eos # (Auto) 0.14 (0.04-0.36) K/mm3 Baso # (Auto) 0.03 (0.01-0.08) K/mm3 Blood Type A POSITIVE Gel Antibody Screen Negative Med Orders - Current: Current Medications Diphenhydramine HCl (Benadryl) 25 mg IVPUSH Q6H PRN PRN Reason: Itching Ephedrine Sulfate (Ephedrine Sulfate) 5 mg IVPUSH ASDIRECTED PRN PRN Reason: HYPOTENTSION Fentanyl (Sublimaze) 100 mcg EPIDUR Q3H PRN PRN Reason: Pain Last Admin: 12/08/19 13:45 Dose: 100 mcg Fentanyl/Bupivacaine HCl (Fentanyl/Bupivacaine/Ns 2 Mcg-0.125% 100 Ml) 100 ml EPIDUR CONTINUOUS PRN PRN Reason: Pain Last Admin: 12/08/19 13:45 Dose: 100 ml Lactated Ringer's (Ringers, Lactated) 1,000 mls @ 100 mls/hr IV ASDIRECTED CASSY Last Admin: 12/08/19 16:03 Dose: 100 mls/hr Oxytocin/Lactated Ringer's (Pitocin In Lr 10 Units/1,000 Ml) 10 unit in 1,000 mls @ 12 mls/hr IV TITRATE CASSY; Protocol Oxytocin/Lactated Ringer's (Pitocin In Lr 10 Units/1,000 Ml) 10 unit in 1,000 mls @ 100 mls/hr IV .CONTINUOUS CASSY Sodium Chloride (Saline Flush) 10 ml FLUSH ASDIRECTED PRN PRN Reason: Keep Vein Open Discontinued Medications Misoprostol (Cytotec) 25 mcg VAG ONETIME ONE Stop: 12/08/19 08:31 Last Admin: 03/03/20 08:22 Dose: Not Given Misoprostol (Cytotec) 50 mcg VAG Q4H CASSY Stop: 12/08/19 17:01 Last Admin: 12/08/19 11:10 Dose: 50 mcg Misoprostol (Cytotec) Confirm Administered Dose 50 mcg .ROUTE .STK-MED ONE Stop: 12/08/19 08:02 Last Admin: 12/08/19 08:04 Dose: 50 mcg - Exam General: Alert, Oriented HEENT: Pupils Equal, Mucous Membr. Moist/[place] Neck: Supple Lungs: Clear to Auscultation, Normal Respiratory Effort Cardiovascular: Regular Rate, Regular Rhythm GI/Abdominal Exam: Normal Bowel Sounds, Soft, Non-Tender (Female) Exam: Normal External Exam Extremities: Normal Inspection, Non-Tender, No Pedal Edema, Normal Capillary Refill Skin: Warm, Dry, Intact Psy/Mental Status: Alert, Normal Affect, Normal Mood - Problem List & Annotations (1) 38 weeks gestation of SNOMED Code(s): 13004882 Code(s): Z3A.38 - 38 WEEKS GESTATION OF Status: Acute Current Visit: Yes (2) Polyhydramnios affecting in third trimester SNOMED Code(s): 725383411, 126888290 Code(s): O40.3XX0 - POLYHYDRAMNIOS, THIRD TRIMESTER, NOT APPLICABLE OR UNSP Status: Acute Current Visit: Yes (3) Abnormal US Status: Acute Current Visit: Yes (4) Second degree perineal laceration, delivered, current hospitalization SNOMED Code(s): 589088241, 395621638 Code(s): O70.1 - SECOND DEGREE PERINEAL LACERATION DURING DELIVERY Status: Acute Current Visit: Yes - Problem List Review Problem List Initiated/Reviewed/Updated: No - My Orders Last 24 Hours: My Active Orders 12/08/19 07:28 Patient Status [ADT] Routine Activity as Tolerated [RC] PFP Communication Order [RC] ASDIRECTED Heart Tones [RC] ASDIRECTED Non Stress Test [RC] PER UNIT ROUTINE Notify Provider [RC] PFP Notify Provider [RC] PRN Peripheral IV Care [RC] . DIRECTED Vital Signs [RC] PER UNIT ROUTINE Sodium Chloride 0.9% [Saline Flush] 10 ml FLUSH ASDIRECTED PRN Electronic Heart Tones Ext w TOCO [WOMSER] Routine Electronic Heart Tones Internal [WOMSER] Per Unit Routine Peripheral IV Insertion Adult [OM.PC] Routine Resuscitation Status Routine 12/08/19 07:30 Communication Order [RC] ASDIRECTED Communication Order [RC] ASDIRECTED Communication Order [RC] ASDIRECTED Monitoring [RC] INTERMITTENT Notify Provider [RC] ASDIRECTED Vaginal Exam [RC] ASDIRECTED Lactated Ringers [Ringers, Lactated] 1,000 ml IV ASDIRECTED Oxytocin/Lactated Ringers [Pitocin in LR 10 Units/1,000 ML] 10 unit in 1,000 ml IV .CONTINUOUS Oxytocin/Lactated Ringers [Pitocin in LR 10 Units/1,000 ML] 10 unit in 1,000 ml IV TITRATE 12/08/19 07:51 RAPID PLASMA REAGIN,RPR [CHEM] Routine 12/08/19 Dinner Regular Diet [DIET] - Plan Plan:: Clinically indicated induction because of polyhydramnios, uncoiled umbilical cord, debris and amnionic fluid. Cytotec 50 g placed intravaginally adjacent to the cervix at 0802 hrs. Brief History: [facility] LIVE . L/D Delivery Note. Patient Name: Edith BA Record Number: [id number]. Date of : 89Patient Status: Inpatient. Attending Provider: Shaun Cavanaugh Number: [id number]. Date: 12/08/19 18:21Initialization Date: 12/08/19 18:21. L & D Note. - General Info. Date of Service: 12/08/19. Mother's Due Date: . - Delivery Note. Labor: Augmented by ARM. Cervical Ripening Method: Misoprostil (50 mcg x2). Delivery Outcome: Livebirth (male live born 180Saturday12/08/2018 polyhydramnios, weight 3170 b/6#15.8 oz APGARS 9/9 SPENCER). Delivery Method: Spontaneous Vaginal Delivery-Single. Infant Delivery Mode: Spontaneous. Presentation: Left Occiput Anterior (SPENCER). Nuchal Cord: None. Prep: Povidone-Iodine (Betadine. Anesthesia Type: Epidural. Amniotic Fluid Description: Clear. Episiotomy Type: None. Laceration: 2nd Degree (midline ). Suture type: Other (monocryl). Suture size: 3-0. Placenta : Intact, Spontaneous (1803 12/08/2019). Cord: 3 Vessels. Estimated Blood Loss: 250. Resuscitation Needed: No. : Suctioned, Bulb Syringe, Stimulated, Warmed, [place] Used, Warmer Used. Provider: Shaun Cavanaugh. Score 1 min: 9. Score 5 min: 9. Induction Criteria. - Ramirez Score. Ramirez Score Dilation: 1-2 cm. Ramirez Score Effacement: 40-50%. Ramirez Score Infant's Station: -2. Ramirez Score Consistency: Soft. Ramirez Score Cervix Position: Posterior. Ramirez Score Total: 5. Ramirez Score Presenting Part: Reports: Cephalic. - Induction. Gestational Age >/= 39 wks: No. Medical Indication: polyhydramnios. Estimated Pelvis: Reports: Adequate. Reassuring Monitoring Strip: Yes. Absence of Tachy Systole: Yes. - Augmentation. Estimated Pelvis: Reports: Adequate. Weight Estimated:: Reports: AGA. Reassuring Monitoring Strip: Yes. Absence of Tachy Systole : Yes. - General Info. Date of Service: 12/08/19. Functional Status: Reports : Pain Controlled. - Review of Systems. General: Reports: No Symptoms. HEENT : Reports: No Symptoms. Pulmonary: Reports: No Symptoms. Cardiovascular: Reports: No Symptoms. Gastrointestinal: Reports: No Symptoms. Genitourinary: Reports: No Symptoms. Musculoskeletal: Reports: No Symptoms. Skin: Reports: No Symptoms. Neurological: Reports: No Symptoms. Psychiatric: Reports: No Symptoms. - Patient Data. Vitals - Most Recent: Last Vital Signs. Temp 98.1 F 12/08/19 07:13. Pulse 80 12/08/19 07:13. Resp 16 12/08/19 07:13. BP 117/ 74 12/08/19 07:13. Pulse Ox 100 12/08/19 07:13. Weight - Most Recent: 181 lb. I&O - Last 24 Hours: Intake & Output. 12/07/2002/12/2002. 06:5914: 5922:59. Intake [id number]. [id number]. Lab Results Last 24 Hours: Laboratory Results - last 24 hr. 12/07/2002/03/20Range/Units. 07:5107:51. WBC 8.58 (3.98 -10.04) K/mm3. RBC 3.91 L (3.98-5.22) M/mm3. Hgb 12.2 (11.2-15.7) gm/dl. Hct 36.2 (34.1-44.9) %. MCV 92.6 (79.4-94.8) fl. MCH 31.2 (25.6-32.2) pg. MCHC 33.7 (32.2-35.5) g/dl. RDW Std Deviation 41.9 (36.4-46.3) fL. Plt Count 213 (182-369) K/mm3. MPV 9.4 (9.4-12.3) fl. Neut % (Auto) 73.9 H (34.0 -71.1) %. Lymph % (Auto) 17.2 L (19.3-51.7) %. [place] % (Auto) 6.3 (4.7-12.5) %. Eos % (Auto) 1.6 (0.7-5.8). Baso % (Auto) 0.3 (0.1-1.2) %. Neut # (Auto ) 6.33 H (1.56-6.13) K/mm3. Lymph # (Auto) 1.48 (1.18-3.74) K/mm3. [place] # ( Auto) 0.54 H (0.24-0.36) K/mm3. Eos # (Auto) 0.14 (0.04-0.36) K/mm3. Baso # (Auto) 0.03 (0.01-0.08) K/mm3. Blood Type A POSITIVE. Gel Antibody Screen Negative. Med Orders - Current: Current Medications. Diphenhydramine HCl ( Benadryl) 25 mg IVPUSH Q6H PRN. PRN Reason: Itching. Ephedrine Sulfate ( Ephedrine Sulfate) 5 mg IVPUSH ASDIRECTED PRN. PRN Reason: HYPOTENTSION. Fentanyl (Sublimaze) 100 mcg EPIDUR Q3H PRN. PRN Reason: Pain. Last Admin: 13:45 Dose: 100 mcg. Fentanyl/Bupivacaine HCl (Fentanyl/Bupivacaine/Ns 2 Mcg-0.125% 100 Ml) 100 ml EPIDUR CONTINUOUS PRN. PRN Reason: Pain. Last Admin: 12/08/19 13:45 Dose: 100 ml. Lactated Ringer's (Ringers, Lactated) 1, 000 mls @ 100 mls/hr IV ASDIRECTED CASSY. Last Admin: 12/08/19 16:03 Dose: 100 mls/hr. Oxytocin/Lactated Ringer's (Pitocin In Lr 10 Units/1,000 Ml) 10 unit in 1,000 mls @ 12 mls/hr IV TITRATE CASSY; Protocol. Oxytocin/Lactated Ringer's ( Pitocin In Lr 10 Units/1,000 Ml) 10 unit in 1,000 mls @ 100 mls/hr IV .CONTINUOUS CASSY. Sodium Chloride (Saline Flush) 10 ml FLUSH ASDIRECTED PRN. PRN Reason: Keep Vein Open. Discontinued Medications. Misoprostol (Cytotec) 25 mcg VAG ONETIME ONE. Stop: 12/08/19 08:31. Last Admin: 12/08/19 08:22 Dose : Not Given. Misoprostol (Cytotec) 50 mcg VAG Q4H CASSY. Stop: 12/08/19 17: 01. Last Admin: 12/08/19 11:10 Dose: 50 mcg. Misoprostol (Cytotec) Confirm Administered Dose 50 mcg .ROUTE .STK-MED ONE. Stop: 12/08/19 08:02. Last Admin : 12/08/19 08:04 Dose: 50 mcg. - Exam. General: Alert, Oriented. HEENT: Pupils Equal, Mucous Membr. Moist/[place]. Neck: Supple. Lungs: Clear to Auscultation, Normal Respiratory Effort. Cardiovascular: Regular Rate, Regular Rhythm. GI/Abdominal Exam: Normal Bowel Sounds, Soft, Non-Tender. (Female) Exam: Normal External Exam. Extremities: Normal Inspection, Non-Tender, No Pedal Edema, Normal Capillary Refill. Skin: Warm, Dry, Intact. Psy/Mental Status: Alert, Normal Affect, Normal Mood. - Problem List & Annotations. (1) 38 weeks gestation of . SNOMED Code(s): 08551225. Code(s): Z3A.38 - 38 WEEKS GESTATION OF Status: Acute Current Visit: Yes. (2) Polyhydramnios affecting in third trimester. SNOMED Code(s): 349304275, 738113057. Code(s): O40.3XX0 - POLYHYDRAMNIOS, THIRD TRIMESTER, NOT APPLICABLE OR UNSP Status: Acute Current Visit: Yes. (3) Abnormal US. Status: Acute Current Visit: Yes. (4) Second degree perineal laceration, delivered, current hospitalization. SNOMED Code(s): 773156592, 692337866. Code(s): O70.1 - SECOND DEGREE PERINEAL LACERATION DURING DELIVERY Status: Acute Current Visit: Yes. - Problem List Review. Problem List Initiated/Reviewed/Updated: No. - My Orders. Last 24 Hours: My Active Orders. 12/08/19 07:28. Patient Status [ADT] Routine. Activity as Tolerated [ RC] PFP. Communication Order [RC] ASDIRECTED. Heart Tones [RC] ASDIRECTED. Non Stress Test [RC] PER UNIT ROUTINE. Notify Provider [RC] PFP. Notify Provider [RC] PRN. Peripheral IV Care [RC] . DIRECTED. Vital Signs [RC] PER UNIT ROUTINE. Sodium Chloride 0.9% [Saline Flush] 10 ml FLUSH ASDIRECTED PRN. Electronic Heart Tones Ext w TOCO [WOMSER] Routine. Electronic Heart Tones Internal [WOMSER] Per Unit Routine. Peripheral IV Insertion Adult [OM.PC] Routine. Resuscitation Status Routine. 12/08/19 07: 30. Communication Order [RC] ASDIRECTED. Communication Order [RC] ASDIRECTED. Communication Order [RC] ASDIRECTED. Monitoring [RC] INTERMITTENT. Notify Provider [RC] ASDIRECTED. Vaginal Exam [RC] ASDIRECTED. Lactated Ringers [Ringers, Lactated] 1,000 ml IV ASDIRECTED. Oxytocin/Lactated Ringers [ Pitocin in LR 10 Units/1,000 ML] 10 unit in 1,000 ml IV .CONTINUOUS. Oxytocin/ Lactated Ringers [Pitocin in LR 10 Units/1,000 ML] 10 unit in 1,000 ml IV TITRATE. 12/08/19 07:51. RAPID PLASMA REAGIN,RPR [CHEM] Routine. 12/08/19 Dinner. Regular Diet [DIET]. - Plan. Plan:: Clinically indicated induction because of polyhydramnios, uncoiled umbilical cord, debris and amnionic fluid. Cytotec 50 g placed intravaginally adjacent to the cervix at 0802 hrs. Diagnosis: Stroke: No - Discharge Data Discharge Date: 12/10/19 Discharge Disposition: Home, Self-Care 01 Condition: Good - Referral to Home Health Primary Care Physician: Shaun Cavanaugh MD - Discharge Diagnosis/Problem(s) (1) 38 weeks gestation of SNOMED Code(s): 17825334 ICD Code: Z3A.38 - 38 WEEKS GESTATION OF Status: Acute Current Visit: Yes (2) Polyhydramnios affecting in third trimester SNOMED Code(s): 204844369, 503263833 ICD Code: O40.3XX0 - POLYHYDRAMNIOS, THIRD TRIMESTER, NOT APPLICABLE OR UNSP Status: Acute Current Visit: Yes (3) Abnormal US Status: Acute Current Visit: Yes (4) Second degree perineal laceration, delivered, current hospitalization SNOMED Code(s): 417830586, 076189652 ICD Code: O70.1 - SECOND DEGREE PERINEAL LACERATION DURING DELIVERY Status : Acute Current Visit: Yes - Patient Summary/Data Complications: None Consults: None Hospital Course: Uneventful - Patient Instructions Diet: Usual Diet as Tolerated Driving: Do Not Drive (Time 48 hours) Showering/Bathing: May Shower Notify Provider of: Fever, Increased Pain, Swelling and Redness, Drainage, Nausea and/or Vomiting - Discharge Plan *PRESCRIPTION DRUG MONITORING PROGRAM REVIEWED*: Not Applicable *COPY OF PRESCRIPTION DRUG MONITORING REPORT IN PATIENT SONYA: Not Applicable Home Medications: Home Meds Acetaminophen [Tylenol] 650 mg PO Q6H PRN tablet 12/10/19 [Rx] Docusate Sodium [Colace] 100 mg PO BID PRN cap 12/10/19 [Rx] Ibuprofen [Motrin] 600 mg PO Q6H PRN tablet 12/10/19 [Rx] witch Laury [Tucks] 1 pad TOP ASDIRECTED PRN pad 12/10/19 [Rx] Referrals: Shaun Cavanaugh MD [Primary Care Provider] - (Ration to make appointment to see me for check on 12/22/2019) - Discharge Summary/Plan Comment DC Time >30 min.: No - Patient Data Vitals - Most Recent: Last Vital Signs Temp 97.9 F 12/09/19 13:32 Pulse 67 12/10/19 04:38 Resp 15 12/10/19 04:38 BP 103/55 L 12/10/19 04:38 Pulse Ox 99 12/10/19 04:38 Weight - Most Recent: 181 lb I&O - Last 24 hours: Intake & Output 12/09/19 12/10/19 12/10/19 22:59 06:59 14:59 Intake Total 360 Balance 360 Med Orders - Current: Current Medications Acetaminophen (Tylenol) 650 mg PO Q4H PRN PRN Reason: mild pain or fever Benzocaine/Menthol (Dermoplast Pain Relief [place]) 0 gm TOP ASDIRECTED PRN PRN Reason: Perineal Comfort Measure Last Admin: 12/08/19 20:51 Dose: 1 canister Docusate Sodium (Colace) 100 mg PO BID PRN PRN Reason: Constipation Last Admin: 12/08/19 20:53 Dose: 100 mg Ibuprofen (Motrin) 600 mg PO Q4H PRN PRN Reason: Mild pain or fever Last Admin: 12/09/19 19:04 Dose: 600 mg Witch [place]ury (Tucks) 1 pad TOP ASDIRECTED PRN PRN Reason: Perineal Comfort Measure Last Admin: 12/08/19 20:51 Dose: 1 tub Discontinued Medications Bupivacaine HCl (Sensorcaine-Mpf 0.25%) 10 ml .ROUTE .STK-MED ONE Stop: 12/08/19 00:01 Diphenhydramine HCl (Benadryl) 25 mg IVPUSH Q6H PRN PRN Reason: Itching Ephedrine Sulfate (Ephedrine Sulfate) 5 mg IVPUSH ASDIRECTED PRN PRN Reason: HYPOTENTSION Fentanyl (Sublimaze) 100 mcg EPIDUR Q3H PRN PRN Reason: Pain Last Admin: 12/08/19 13:45 Dose: 100 mcg Fentanyl/Bupivacaine HCl (Fentanyl/Bupivacaine/Ns 2 Mcg-0.125% 100 Ml) 100 ml EPIDUR CONTINUOUS PRN PRN Reason: Pain Last Admin: 12/08/19 13:45 Dose: 100 ml Lactated Ringer's (Ringers, Lactated) 1,000 mls @ 100 mls/hr IV ASDIRECTED CASSY Last Admin: 12/08/19 16:03 Dose: 100 mls/hr Oxytocin/Lactated Ringer's (Pitocin In Lr 10 Units/1,000 Ml) 10 unit in 1,000 mls @ 12 mls/hr IV TITRATE CASSY; Protocol Oxytocin/Lactated Ringer's (Pitocin In Lr 10 Units/1,000 Ml) 10 unit in 1,000 mls @ 100 mls/hr IV .CONTINUOUS CASSY Misoprostol (Cytotec) 25 mcg VAG ONETIME ONE Stop: 12/08/19 08:31 Last Admin: 12/08/19 08:22 Dose: Not Given Misoprostol (Cytotec) 50 mcg VAG Q4H CASSY Stop: 12/08/19 17:01 Last Admin: 12/08/19 11:10 Dose: 50 mcg Misoprostol (Cytotec) Confirm Administered Dose 50 mcg .ROUTE .STK-MED ONE Stop: 12/08/19 08:02 Last Admin: 12/08/19 08:04 Dose: 50 mcg Sodium Chloride (Saline Flush) 10 ml FLUSH ASDIRECTED PRN PRN Reason: Keep Vein Open
== END 2019-12-10 14:00 | disposition home or self-care (01) | DRG 560 ==
LOC: JD.OBCHECK 06:50 → JD.OB 06:52 → OBSVTOIN 18:00 → JD.OB 18:01
PROVIDERS: ADMIT Obstetrics & Gynecology; ATTEND Obstetrics & Gynecology
PROC: 10E0XZZ Delivery of Products of Conception, External Approach (ICD-10-PCS; principal; 2019-12-08)
PROC: 10907ZC Drainage of Amniotic Fluid, Therapeutic from Products of Conception, Via Natural or Artificial Opening (ICD-10-PCS; 2019-12-08)
PROC: 0KQM0ZZ Repair Perineum Muscle, Open Approach (ICD-10-PCS; 2019-12-08)
PROC: 3E0R3BZ Introduction of Anesthetic Agent into Spinal Canal, Percutaneous Approach (ICD-10-PCS; 2019-12-08)
DX: O40.3XX0 Polyhydramnios, third trimester, not applicable or unspecified (principal); Z3A.38 38 weeks gestation of pregnancy; Z37.0 Single live birth; O70.1 Second degree perineal laceration during delivery
CPT/HCPCS: 36415; 51702; 59025; 59409; 85025; 86592; 86850; 86900; 86901; A9270-GY; J3010; J3490; J7120